=== PATIENT | male | born 1965 | race Two or more races ===

== ENCOUNTER 2019-08-10 14:26 | Emergency (ER) | payer OTHER ==
[~2019-08-10] VITALS: Ht 157.5 cm; Wt 65.8 kg
--- NOTE | 2019-08-10 14:30 | NUR ---
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 KEPT COMFORTABLE, WILL CONTINUE TO MONITOR ACCORDINGLY.
[2019-08-10] MEDS ORDERED: KETOROLAC TROMETHAMINE INJ 30 MG/ML VIAL ONE (14:50)
[2019-08-10] MEDS ORDERED: KETOROLAC TROMETHAMINE INJ 30 MG/ML VIAL IM ONE (15:00)
[2019-08-10 15:01] VITALS: BP 122/71
--- NOTE | 2019-08-10 15:01 | NUR ---
Patient discharged to home in stable condition. Written and verbal after care instructions given. Patient verbalizes understanding of instruction.
== END 2019-08-10 15:01 | disposition home or self-care (01) ==
LOC: ER 14:26
DX: S39.012A Strain of muscle, fascia and tendon of lower back, initial encounter (principal); V49.49XA Driver injured in collision with other motor vehicles in traffic accident, initial encounter; Y93.89 Activity, other specified; Y92.413 State road as the place of occurrence of the external cause; Y99.8 Other external cause status
CPT/HCPCS: 96372; 99283; J1885